=== PATIENT | female | born 1985 | race Caucasian/White ===

== ENCOUNTER 2017-02-02 00:01 | Emergency (ER) | payer MEDICAID ==
[~2017-02-02] VITALS: Ht 167.6 cm; Wt 55.0 kg
[2017-02-02 00:07] VITALS: Ht 167.6 cm; Wt 55.0 kg
[2017-02-02] MEDS ORDERED: METOCLOPRAMIDE 10 MG INJ IV STA (00:30)
[2017-02-02] MEDS ORDERED: DIPHENHYDRAMINE 50 MG INJ IV ONE (00:30)
[2017-02-02] MEDS ORDERED: SOD CHLORIDE 0.9% 1,000 ML IV STA (00:48)
[2017-02-02] MEDS ORDERED: KETOROLAC 15 MG INJ IV STA (01:53)
[2017-02-02] MEDS ORDERED: DIAZEPAM 5 MG TAB PO ONE (02:00)
[2017-02-02 02:17] LABS: ADD UMIC NO; UR ASCORBIC ACID NEGATIVE (NEGATIVE); UR BILIRUBIN (Dip) NEGATIVE (NEGATIVE); UR BLOOD (Dip) NEGATIVE (NEGATIVE); UR CLARITY CLEAR (CLEAR); UR COLOR STRAW (YELLOW); UR GLUCOSE (Dip) NEGATIVE (NEGATIVE); UR KETONES (Dip) NEGATIVE (NEGATIVE); UR LEUKOCYTE ESTERASE (Dip) NEGATIVE Leu/ul (NEGATIVE); UR NITRITE (Dip) NEGATIVE (NEGATIVE); UR SPECIFIC GRAVITY (Dip) 1.003 (1.003-1.030); UR TOTAL PROTEIN (Dip) NEGATIVE (NEGATIVE); UR UROBILINOGEN (Dip) NEGATIVE (NEGATIVE)
[2017-02-02] MEDS ORDERED: MECL12.574 PO (02:38)
[2017-02-02] MEDS ORDERED: METO10TA92 PO (02:38)
[2017-02-02] MEDS ORDERED: NAPR-260 PO (02:39)
--- NOTE | 2017-02-02 02:53 | RADRPT ---
PROCEDURE: CT BRAIN WITHOUT CONTRAST CLINICAL INDICATION: 31-year-old female with headaches and vertigo. TECHNIQUE: The study was performed utilizing a GE 800[employer]Its[employer]atonic VCT 64-slice CT scanner. Direct axia l sections were obtained from the foramen magnum to the vertex without the use of intravenous contra st material. Sagittal and coronal reformations were obtained. One or more the following dose reduct ion techniques were utilized: automated exposure control, adjustment of the mA and/or kV according t o patient's size and/or the use of iterative reconstruction technique. The images were viewed on a PACS workstation. CTD/vol = 44.5 mGy; Total Exam DLP = 720.2 mGy-cm. COMPARISON: None. FINDINGS: The ventricles have a normal size, shape and position. There is no evidence for mass effect or midl ine shift. There are no intracranial areas of abnormal attenuation. There is no evidence for acute intra or extra-axial blood. The bony calvarium is intact. The partially visualized paranasal sinuse s and mastoid air cells are without significant abnormal soft tissue. IMPRESSION: Unremarkable noncontrast CT scan of the brain. .Henrique Atkinson MD, Date Time Electronically viewed and signed by .Henrique Atkinson MD, on 02/02/2017 02:53 .[place]/
--- NOTE | 2017-02-02 02:55 | ERD ---
ER Documentation Chief Complaint Chief Complaint kiley boy friend, cc: headache, nausea, HPI 31 year old female presents with boyfriend to the emergency department for global moderate to severe strong headache associated with dizziness, nausea and couple episodes of nonbilious,nonbloody vomiting. Patient states she feels as if the room is spinning when she gets up. Admits to photophobia. She denies ear pain, tinnitus, neuro deficits, diarrhea, abdominal pain, shortness of breath, chest pain ROS All systems reviewed and are negative except as per history of present illness. Medications Home Meds Active Scripts Naproxen* (Naprosyn*) 500 Mg Tablet, 500 MG PO BID, #20 TAB Prov:SUDHAKAR ONEAL PA-C 02/02/17 Metoclopramide* (Reglan*) 10 Mg Tablet, 10 MG PO Q6 Y for NAUSEA AND/OR VOMITING , #20 TAB Prov:SUDHAKAR ONEALC 02/02/17 Meclizine Hcl* (Antivert*) 12.5 Mg Tab, 25 MG PO Q6H Y for DIZZINESS, #30 TAB Prov:SUDHAKAR ONEALC 02/02/17 Allergies Allergies: Coded Allergies: No Known Allergy (Unverified , 05/13/15) PMhx/Soc Hx Neurological Disorder: Yes (Occasional CALDERA's. Last one was 15 days ago. No Rx ) Hx Alcohol Use: No Hx Substance Use: No Hx Tobacco Use: No Smoking Status: Never smoker Physical Exam Vitals Vital Signs Date Time Temp Pulse Resp B/P Pulse Ox O2 Delivery O2 Flow Rate FiO2 02/02/17 00:07 98.1 78 16 112/64 100 Physical Exam GENERAL: well-developed/well-nourished, in no apparent distress, non-toxic appearing HENT: NC/AT, bilateral tympanic membrane is normal with good cone of light, nares patent, oropharynx clear without exudates EYES: Conjunctiva normal, PERRLA, EOMI, no nystagmus noted NECK: Supple, no lymphadenopathy PULM: CTA bilaterally, no rales, rhonchi, or wheezing heard CV: Normal S1S2, RRR, good capillary refill GI: Soft, non-distended, normal bowel sounds, non-tender BACK: No midline tenderness, no masses, No CVAT EXT: No clubbing, cyanosis, or edema NEURO: Alert and orientated to person, place, and time. CN II-IIX intact. Gait and coordination were normal. Hand veterinarian strength were equal and within normal limits SKIN: Intact, normal turgor PSYCH: Normal mood and mentation, patient denied SI Results 24 hrs Laboratory Tests Test 02/02/17 00:30 Urine Color STRAW Urine Clarity CLEAR Urine pH 8.0 Urine Specific [place] 1.003 Urine Ketones NEGATIVEmg/dL Urine Nitrite NEGATIVEmg/dL Urine Bilirubin NEGATIVEmg/dL Urine Urobilinogen NEGATIVEmg/dL Urine Leukocyte Esterase NEGATIVELeu/ul Urine Hemoglobin NEGATIVEmg/dL Urine Glucose NEGATIVEmg/dL Urine Total Protein NEGATIVEmg/dl Current Medications Medications (Trade) Dose Ordered Sig/Farheen Route PRN Reason Start Time Stop Time Status Last Admin Dose Admin Metoclopramide HCl (Reglan) 10 mg ONCE STAT IV 02/02/17 00:30 02/02/17 00:31 DC 02/02/17 01:00 Diphenhydramine HCl 50 mg 50 mg ONCE ONCE IV 02/02/17 00:30 02/02/17 00:31 DC 02/02/17 00:59 Sodium Chloride (NS) 1,000 ml @ 1,000 mls/hr Q1H STAT IV 02/02/17 00:48 02/02/17 01:47 DC 02/02/17 01:00 Diazepam (Valium) 10 mg ONCE ONCE PO 02/02/17 02:00 02/02/17 02:00 DC Ketorolac Tromethamine (Toradol) 15 mg ONCE STAT IV 02/02/17 01:53 02/02/17 01:54 DC 02/02/17 02:07 Procedures/MDM 31 year old female presents to the ED with headache and vertigo, likely peripheral vertigo, such as positional vertigo or vestibular migraines. Patient did not have neurological symptoms, tinnitus or hearing loss. Low suspicion for CVA, cerebral vertigo. CT brain did not show acute pathology. In the ED, IV access was established. Patient was given 1 liter of normal saline fluids, Benadryl, Reglan and Toradol. She was given valium 10mg PO, patient has improvement in symptoms. Patient is hemodynamically stable and neurovascularly intact to be discharged home to follow-up with primary care physician and referred to neurologist. Prescription naproxen, Antivert, and Reglan have been given. Discussed to return to the ER if condition worsens or not improves as expected. Patient expressed that they agreed and understood this plan. Departure Diagnosis: Primary Impression: Headache Additional Impression: Vertigo Condition: Stable Patient Instructions: Preventing Migraine Headaches: Medications and Lifestyle Changes, Vertigo, Unspecified Additional Instructions: Visite a pfeiffer mdico maana para un EXAMEN.Regrese a estas instalaciones si no se mejora melissa esperbamos o melissa le dijimos. Specialist:Usted tiene judd condicin mdica que requiere que jaja a un especialista dentro de los prximos 1-2 [place].POR FAVOR,CON PFEIFFER SEGUIMIENTO DE PRIMARIA PHSICIAN refferal. SI USTED NO TIENE UN MDICO GENERAL Y / O USTED NO PUEDE PAGAR ardianna a un mdico,los siguientes [place] RECURSOS sido suministrado a usted. ES PFEIFFER RESPONSABILIDAD PARA SER VISTOS POR EL ESPECIALISTA: Gore toda la medicina brijesh y melissa se le indic. Regrese a estas instalaciones si no se mejora melissa esperbamos o melissa le dijimos. SUDHAKAR ONEAL PA-C Feb 02, 2017 02:55 SUDHAKAR ONEAL PA-C Feb 02, 2017 02:55
== END 2017-02-02 03:06 | disposition home or self-care (01) ==
LOC: FTE 00:01
DX: R51 Headache (principal); R42 Dizziness and giddiness
CPT/HCPCS: 70450; 81003; 96374; 96375; J1200; J1885; J2765; J7030; Z7502

== ENCOUNTER 2017-05-01 09:45 | Emergency (ER) | END 2017-05-01 13:41 | disposition home or self-care (01) ==

== ENCOUNTER 2018-09-22 01:08 | Inpatient (IN) | payer MEDICAID, OTHER ==
[~2018-09-22] VITALS: Ht 157.5 cm; Wt 56.0 kg
[~2018-09-22 01:08] MED LIST: ACET500C5 PO; CIPR500T4 PO; MECL12.574 PO; METO10TA92 PO; NAPR-985 PO; ONDA4TAB14 PO
[2018-09-22 01:16] VITALS: Ht 157.5 cm; Wt 56.0 kg
[2018-09-22] MEDS ORDERED: ACETAMINOPHEN 325 MG TAB PO STA (01:21)
[2018-09-22] MEDS ORDERED: ONDANSETRON 4 MG INJ IV STA (01:21)
[2018-09-22] MEDS ORDERED: CEFEPIME 2GM/50 ML (PMX) 50 ML IVPB STA (01:21)
[2018-09-22] MEDS ORDERED: SODIUM CHLORIDE 0.9% 1L BAG IV* STA (01:21)
[2018-09-22] MEDS ORDERED: morphine 4 MG/ML VIAL IV STA (01:21)
[2018-09-22] MEDS ORDERED: VANCOMYCIN 1 GM (PMX) 250 ML IVPB ONE (01:30)
--- NOTE | 2018-09-22 03:38 | ERD ---
ER Documentation Chief Complaint Chief Complaint fever/abdominal pain/headache/vomiting x 2 dyas HPI This is a very pleasant 33 female with fever abdominal pain and vomiting for the past 2 days. Vomiting is nonbilious nonbloody. She also complains of body aches and a little bit of runny nose and slight cough. No sick contacts. No recent travel. No other current complaints. Patient says she got progressively worse over the past few days. Denies any photophobia. Denies any neck stiffness. ROS All systems reviewed and are negative except as per history of present illness. Medications Home Meds Active Scripts Acetaminophen* (Tylophen*) 500 Mg Capsule, 1 CAP PO Q6H PRN for PAIN AND OR ELEVATED TEMP, #20 CAP Prov:RICARDO NEVES. SEAMLESS T[employer]BE MILL OPERATOR 05/01/17 Discontinued Scripts Ciprofloxacin Hcl* (Ciprofloxacin Hcl*) 500 Mg Tablet, 500 MG PO BID for 10 Days, #20 TAB Prov:RICARDO NEVES. SEAMLESS TUBE MILL OPERATOR 05/01/17 Ondansetron (Ondansetron Odt) 4 Mg Tab.rapdis, 4 MG PO Q6H PRN for NAUSEA AND/OR VOMITING, #10 TAB Prov:RICARDO NEVES. SEAMLESS TUBE MILL OPERATOR 05/01/17 Naproxen* (Naprosyn*) 500 Mg Tablet, 500 MG PO BID, #20 TAB Prov:SUDHAKAR ONEAL PA-C 02/02/17 Metoclopramide* (Reglan*) 10 Mg Tablet, 10 MG PO Q6 PRN for NAUSEA AND/OR VOMITING, #20 TAB Prov:SUDHAKAR ONEAL PA-C 02/02/17 Meclizine Hcl* (Antivert*) 12.5 Mg Tab, 25 MG PO Q6H PRN for DIZZINESS, #30 TAB Prov:SUDHAKAR ONEAL PA-C 02/02/17 Allergies Allergies: Coded Allergies: No Known Allergy (Unverified , 09/22/18) PMhx/Soc History of Surgery: Yes (SOME INTESTINAL SX BUT UNSURE THE NAME) Anesthesia Reaction: No Hx Neurological Disorder: Yes (Occasional CALDERA's. Last one was 15 days ago. No Rx) Hx Respiratory Disorders: No Hx Cardiac Disorders: No Hx Psychiatric Problems: No Hx Miscellaneous Medical Probl: No Hx Alcohol Use: No Hx Substance Use: No Hx Tobacco Use: No Smoking Status: Never smoker Physical Exam Vitals Vital Signs Date Temp Pulse Resp B/P (MAP) Pulse Ox O2 O2 Flow FiO2 Time Delivery Rate 09/22/18 100.1 125 20 91/53 (66) 100 Room Air 03:01 09/22/18 100.5 02:36 09/22/18 102.7 132 18 111/65 99 01:16 (80) Physical Exam Const: No acute distress Head: Atraumatic Eyes: Normal Conjunctiva ENT: Normal External Ears, Nose and Mouth. Neck: Full range of motion. No meningismus. Resp: Clear to auscultation bilaterally Cardio: Regular rate and rhythm, no murmurs Abd: Soft, non tender, non distended. Normal bowel sounds Skin: No petechiae or rashes Back: No midline or flank tenderness Ext: No cyanosis, or edema Neur: Awake and alert Psych: Normal Mood and Affect Result Diagram: 09/22/18 0131 09/22/18 0131 Results 24 hrs Laboratory Tests Test 09/22/18 01:31 09/22/18 01:34 09/22/18 01:35 09/22/18 01:41 White Blood Count 9.3 10^3/ul Red Blood Count 4.32 10^6/ul Hemoglobin 12.9 g/dl Hematocrit 36.6 % Mean Corpuscular 84.7 fl Volume Mean Corpuscular 29.9 pg Hemoglobin Mean Corpuscular 35.2 g/dl Hemoglobin Concen t Red Cell 12.3 % Distribution Width Platelet Count 217 10^3/UL Mean Platelet 10.9 fl Volume Immature 0.400 % Granulocytes % Neutrophils % 80.9 % Lymphocytes % 11.9 % Monocytes % 6.5 % Eosinophils % 0.1 % Basophils % 0.2 % Nucleated Red 0.0 /100WBC Blood Cells % Immature 0.040 10^3/ul Granulocytes # Neutrophils # 7.5 10^3/ul Lymphocytes # 1.1 10^3/ul Monocytes # 0.6 10^3/ul Eosinophils # 0.0 10^3/ul Basophils # 0.0 10^3/ul Nucleated Red 0.0 10^3/ul Blood Cells # Prothrombin Time 13.5 Sec Prothrombin Time 1.1 Ratio INR International 1.02 Normalized Ratio Activated 26.6 Sec Partial Thrombopl ast Time Sodium Level 143 mmol/L Potassium Level 3.5 mmol/L Chloride Level 109 mmol/L Carbon Dioxide 20 mmol/L Level Anion Gap 14 Blood Urea 9 mg/dl Nitrogen Creatinine 0.53 mg/dl Est Glomerular > 60 mL/min Filtrat Rate mL/min Glucose Level 128 mg/dl Calcium Level 9.3 mg/dl Total Bilirubin 0.5 mg/dl Direct Bilirubin 0.00 mg/dl Indirect 0.5 mg/dl Bilirubin Aspartate Amino 26 IU/L Transf (AST/SGOT) Alanine 25 IU/L Aminotransferase (ALT/SGPT) Alkaline 98 IU/L Phosphatase Troponin I < 0.012 ng/ml Total Protein 8.6 g/dl Albumin 4.6 g/dl Globulin 4.00 g/dl Albumin/Globulin 1.15 Ratio Lipase 54 U/L POC Venous 1.8 mmol/L Lactate Urine Color YELLOW Urine Clarity SLIGHTLY CLOUDY Urine pH 6.0 Urine Specific 1.020 [place] Urine Ketones NEGATIVE mg/dL Urine Nitrite NEGATIVE mg/dL Urine Bilirubin NEGATIVE mg/dL Urine 1+ mg/dL Urobilinogen Urine Leukocyte NEGATIVE X[place]/ul Esterase Urine Microscopic 2 /HPF RBC Urine Microscopic 3 /HPF WBC Urine Mucus FEW /HPF Urine Hemoglobin 1+ mg/dL Urine Glucose NEGATIVE mg/dL Urine Total NEGATIVE mg/dl Protein POC Beta HCG, NEGATIVE Qualitative Current Medications Medications Dose Sig/Farheen Start Time Status Last (Trade) Ordered Route PRN Stop Time Admin Dose Reason Admin Sodium 1,680 ml BOLUS OVER 2 09/22/18 DC 09/22/18 Chloride HOURS STAT 01:21 02:04 (NS) IV* 09/22/18 01:22 650 mg ONCE STAT 09/22/18 DC 09/22/18 Acetaminophen PO 01:21 02:04 (Tylenol 09/22/18 01:22 Tab) Cefepime HCl 50 ml @ ONCE STAT 09/22/18 DC 09/22/18 100 mls/hr IVPB 01:21 02:12 09/22/18 01:50 Vancomycin 250 ml @ ONCE ONCE 09/22/18 DC 09/22/18 HCl 125 mls/hr IVPB 01:30 02:40 09/22/18 03:29 Morphine 4 mg ONCE STAT 09/22/18 DC 09/22/18 Sulfate IV 01:21 02:04 (morphine) 09/22/18 01:23 Ondansetron 4 mg ONCE STAT 09/22/18 DC 09/22/18 HCl (Zofran IV 01:21 02:04 Inj) 09/22/18 01:23 Ondansetron 4 mg ER BRIDGE 09/22/18 HCl (Zofran PRN IV 04:00 Inj) NAUSEA/VOMITI 09/23/18 03:59 NG 650 mg ER BRIDGE 09/22/18 Acetaminophen PRN PO 04:00 (Tylenol .MILD PAIN 09/23/18 03:59 Tab) 1-3 OR TEMP Procedures/MDM EKG: Rate/Rhythm: [Normal Sinus Rhythm] QRS, ST, T-waves: [No changes consistent w/ acute ischemia] Impression: [No evidence of ischemia or arrhythmia] Chest X-ray 1V Interpreted by me: Soft Tissue: No acute abnormalities Bones: No acute abnormalities Mediastinum/Cardiac Silhouette/Lungs: [No acute abnormalities] Patient's infectious symptoms have not stabilized and the patient is at risk of rapid decompensation. The patient will be admitted for careful hydration, antibiotic therapy, and infectious source control. Severe Sepsis Assessment: Infectious Source: Unknown No evidence of endorgan damage 30 ml/kg NS bolus Completed Initial Lactate: 1.8 Repeat Lactate pending Critical Care: Time: 45 minutes, independent of any separately billable procedural time Treatments/Evaluations: Emergent fluid management, while maintaining close respiratory support. Immediate broad spectrum antibiotic therapy. Simultaneous assessment for possible sources in order to direct therapy. Consideration for invasive and chemical support to prevent respiratory or cardiac collapse. Septic Shock Assessment (1 hour post 30 ml/kg fluid bolus): Hypotension (SBP < 90 or 40 mmHg drop, MAP < 65): [No] Lactic acid > 4.0 [No] Perfusion Reassessment for Septic Shock: Temp 99.1 pulse 117, RR 18, BP 117/34 Heart Exam: [Tachycardic] Lung Exam: [No Crackles] Capillary Refill: [Delayed] Peripheral Pulses: [Radially present] Skin: [Mottled, pale] Hypotensive Treatment (not required for isolated lactic acid elevation): Comfort Care: No Central LIne: [[place]] Vasopressor started: [norepinephrine] Accepting Care Team: Current data and ongoing care discussed. Time: 330 Primary Provider: Dr. Cary Consulting: Deferred to inpatient team Outstanding Data: none Departure Diagnosis: Primary Impression: Fever Fever type: unspecified Qualified Codes: R50.9 - Fever, unspecified Additional Impression: Sepsis Sepsis type: sepsis due to unspecified organism Qualified Codes: A41.9 - Sepsis, unspecified organism Condition: Serious BENTLEY WE[place] Sep 22, 2018 03:38
[2018-09-22] MEDS ORDERED: ACETAMINOPHEN 325 MG TAB PO PRN ×2 (04:00→04:30)
[2018-09-22] MEDS ORDERED: ONDANSETRON 4 MG INJ IV PRN (04:00)
--- NOTE | 2018-09-22 04:28 | HP ---
Date/Time of Note Date/Time of Note DATE: 09/22/18 TIME: 04:20 Assessment/Plan VTE Prophylaxis SCD applied (from Nsg): Yes Pharmacological prophylaxis: NA/contraindicated Pharm contraindication: low risk/ambulating Lines/Catheters IV Catheter Type (from Nrsg): Saline Lock Assessment/Plan Hospital Course This is a 33-year-old female being admitted to the telemetry floor for: #1 SIRS: Source unknown possibly underlying GI etiology. viral vs. bacterial. Possibly gastroenteritis. CT scan of the abdomen pelvis without contrast was negative. Given patient's clinical picture as well as examination findings I will proceed with a CT of the abdomen pelvis with IV and p.o. contrast to furthe r evaluate. Broad-spectrum antibiotics of vancomycin and Zosyn. Will trend lactic acid levels initial one was within normal values. Will check influenza panel. No meningeal signs. Negative test. #2 sinus tachycardia: Secondary likely to underlying sepsis and fever. Will give an additional liter bolus of normal saline. Will monitor closely on telemetry. cardio consult if persistent tachycardia. #3 metabolic acidosis: Likely secondary to underlying sepsis. Broad-spectrum antibodies at the current time. Repeat CT of the abdomen pelvis with IV and p.o. contrast. #4 Facial redness: possibly morphine reaction as reports occurred in the past, will dc morphine. dilaudid for pain now. Monitor for resolution or recurrence in the setting of abx administration #5 DVT GI prophylaxis: SCDs, no GI prophylaxis indicated Further treatment strategy will be implemented as per the clinical course. Result Diagram: 09/22/1813009/22/18 013 Results 24hrs Laboratory Tests Test 09/22/18 01:31 09/22/18 01:34 09/22/18 01:35 09/22/18 01:41 White Blood Count 9.3 # Red Blood Count 4.32 Hemoglobin 12.9 Hematocrit 36.6 L Mean Corpuscular 84.7 Volume Mean Corpuscular 29.9 Hemoglobin Mean Corpuscular 35.2 Hemoglobin Concen t Red Cell 12.3 Distribution Width Platelet Count 217 Mean Platelet 10.9 H Volume Immature 0.400 Granulocytes % Neutrophils % 80.9 H Lymphocytes % 11.9 L Monocytes % 6.5 Eosinophils % 0.1 Basophils % 0.2 Nucleated Red 0.0 Blood Cells % Immature 0.040 H Granulocytes # Neutrophils # 7.5 Lymphocytes # 1.1 Monocytes # 0.6 Eosinophils # 0.0 Basophils # 0.0 Nucleated Red 0.0 Blood Cells # Prothrombin Time 13.5 Prothrombin Time 1.1 Ratio INR International 1.02 Normalized Ratio Activated 26.6 Partial Thrombopl ast Time Sodium Level 143 Potassium Level 3.5 Chloride Level 109 Carbon Dioxide 20 L Level Anion Gap 14 H Blood Urea 9 Nitrogen Creatinine 0.53 Est Glomerular > 60 Filtrat Rate mL/min Glucose Level 128 Calcium Level 9.3 Total Bilirubin 0.5 Direct Bilirubin 0.00 Indirect 0.5 Bilirubin Aspartate Amino 26 Transf (AST/SGOT) Alanine 25 Aminotransferase (ALT/SGPT) Alkaline 98 Phosphatase Troponin I < 0.012 Total Protein 8.6 H Albumin 4.6 Globulin 4.00 H Albumin/Globulin 1.15 Ratio Lipase 54 POC Venous 1.8 Lactate Urine Color YELLOW Urine Clarity SLIGHTLY CLOUDY A Urine pH 6.0 Urine Specific 1.020 [place] Urine Ketones NEGATIVE Urine Nitrite NEGATIVE Urine Bilirubin NEGATIVE Urine 1+ H Urobilinogen Urine Leukocyte NEGATIVE Esterase Urine Microscopic 2 RBC Urine Microscopic 3 WBC Urine Mucus FEW A Urine Hemoglobin 1+ H Urine Glucose NEGATIVE Urine Total NEGATIVE Protein POC Beta HCG, NEGATIVE Qualitative Test 09/22/18 03:29 Lactic Acid Level 0.9 HPI/ROS Admit Date/Time Admit Date/Time Hx of Present Illness Chief complaint: Abdominal pain, fever This is a 33-year-old female who presented to the emergency department with her with complaints of abdominal pain and headache x1 day. Patient reports that she started experiencing around 6 PM yesterday abdominal pain followed by nausea and vomiting. She denies any blood in the vomit. She denies any diarrhea. She states that she did have a headache as well. She did feel febrile at home but did not check her temperature. She did have a child at home who is sick. She denies any photophobia or neck pain. Denies any cough or wheezing. She denies any bloody stools. Of note patient was given morphine in the emergency department and she was noted to have a redness of her face as well as her upper chest area her did report that in the past she had morphine and she had a similar reaction. She denies at the current time any trouble breathing or shortness of breath. Allergies: NKDA Medications: See JUN ROS Const: As per HPI Eyes : No pain discharge or redness or change in visual acuity ENT: No pain, sore throat, congestion, congestion, dysphagia or discharge Respiratory: No shortness of breath, cough, sputum, wheezing, or pleuritic pain Cardiovascular: No chest pain, palpitation, PND, or edema GI : As per HPI Genitourinary: No dysuria, hematuria, flank pain , discharge or CVA tenderness Musculoskeletal: No joint pain, back pain, neck pain, restricted range of motion in neck or joints Skin: As per HPI Neuro: No headache, dizziness, syncope, seizure, focal weakness Endocrine: No polyuria, polydipsia, temperature intolerance Psych: No hallucination, depression, anxiety or suicidal ideation PMH/Family/Social Past Medical History intestinal volvulus? Medications Current Medications Ondansetron HCl (Zofran Inj) 4 mg ER BRIDGE PRN IV NAUSEA/VOMITING; Start 09/22/18 at 04:00; Stop 09/23/18 at 03:59 Acetaminophen (Tylenol Tab) 650 mg ER BRIDGE PRN PO .MILD PAIN 1-3 OR TEMP; Start 09/22/18 at 04:00; Stop 09/23/18 at 03:59 Iohexol ((Gastrografin therapeutic equivalent)) 900 ml GIVE PRIOR TO CT ONCE PO ; Start 09/22/18 at 04:30; Stop 09/22/18 at 04:31 Sodium Chloride 1,000 ml @ 100 mls/hr Q10H IV ; Start 09/22/18 at 04:15; Status UNV IV Flush (NS 3 ml) 3 ml PER PROTOCOL IV ; Start 09/22/18 at 04:30; Status UNV Acetaminophen (Tylenol Tab) 650 mg Q6H PRN PO .PAIN 1-3 OR TEMP; Start 09/22/18 at 04:30; Status UNV Hydromorphone HCl (Dilaudid) 0.5 mg Q4H PRN IV .PAIN 7-10; Start 09/22/18 at 04:30; Status UNV Docusate Sodium (Colace) 100 mg Q12H PRN PO .CONSTIPATION; Start 09/22/18 at 0 4:30; Status UNV Bisacodyl (Dulcolax) 5 mg DAILY PRN PO .CONSTIPATION; Start 09/22/18 at 04:30; Status UNV Coded Allergies: No Known Allergy (Unverified , 09/22/18) Past Surgical History Exploratory laparotomy for intestinal repair?, Ovarian cyst removal Family History Significant Family History: no pertinent family hx Social History Alcohol Use: none Smoking Status: Never smoker Drug Use: none Exam/Review of Systems Vital Signs Vitals Vital Signs Date Temp Pulse Resp B/P (MAP) Pulse Ox O2 O2 Flow FiO2 Time Delivery Rate 09/22/18 124 22 101/52 95 Room Air 03:43 (68) 09/22/18 100.1 03:01 Exam Exam General: Patient is currently lying in bed she does appear to be lethargic, and ill-appearing HEENT: Atraumatic, normocephalic. The pupils are equal, round and reactive. Extraocular motor are intact Neck: Supple with full range of motion. No rigidity or meningismus Chest: Nontender Lungs: Clear to auscultation bilaterally no crackles rales or wheezing Heart: Normal S1-S2, Regular rhythm and rate. No murmur, S3, or S4 Abdomen: Soft, tenderness palpation over the lower left abdomen and suprapubic area. Mild guarding to palpation. Normal bowel sounds. No right lower quadrant tenderness to palpation. Skin: Macular rash noted of the face and upper chest Extremities: Normal to inspection, no edema no cyanosis Neurologic: Normal mental status, speech normal, cranial nerves II through XII are intact, motor and sensory are intact,, negative Kernig's and Brudzinski's on exam Additional Comments PROCEDURE: CT Abdomen and Pelvis without contrast. CLINICAL INDICATION: Abdominal pain TECHNIQUE: CT scan of the abdomen and pelvis without contrast was performed on a multi-detector high-resolution CT scanner. Coronal and sagittal reformatted i mages obtained from the axial source images. Images were reviewed on a high- resolution PACS workstation. Exam CTDI 5.62 mGy Exam DLP 329.34 mGy-cm DICOM images are available. One or more of the following dose reduction techniques were utilized: 1.) Automated exposure control 2.) Adjustment of the mA +/- kV according to patient's size 3.) Use of iterative reconstruction technique. COMPARISON: None FINDINGS: Exam is mildly compromised by patient motion. CT abdomen: LOWER THORAX: Lung bases are clear. LIVER AND GALLBLADDER: No abnormal findings. SPLEEN: Normal. PANCREAS: Normal. ADRENAL GLANDS: Normal. KIDNEYS: Kidneys are symmetric in size and morphology. No hydronephrosis or renal calculus. Bilateral ureters are unremarkable. VASCULATURE: Abdominal aorta is normal in caliber. LYMPH NODES: No significant retroperitoneal or mesenteric lymphadenopathy. BOWEL AND MESENTERY: The stomach and bowel are suboptimally evaluated due to patient motion. No significant dilatation of the bowel or evidence for obstruction. The appendix is not clearly seen. There are no inflammatory changes in the mesentery. The large bowel is unremarkable. CT pelvis: Urinary bladder and pelvic organs appear normal. No significant pelvic free fluid or evidence of an inflammatory process. Bones: Regional bones and superficial soft tissues are grossly unremarkable for age. IMPRESSION: 1. No acute process in the imaged abdomen or pelvis. 2. No renal calcifications or evidence for obstructive uropathy. 3. Appendix not clearly seen. No pericecal inflammatory changes. RPTAT: TWYLABB Physician Leatha Date Time Electronically viewed and signed by Physician Leatha on 09/22/2018 02:38 xB/ CC: BENTLEY WELLINGTON [id number] PROCEDURE: Single view chest. CLINICAL INDICATION: Abdominal pain TECHNIQUE: Single view of the chest was obtained COMPARISON: None FINDINGS: There is no airspace consolidation or focal infiltrate. No pleural effusion or pneumothorax. Cardiac silhouette and mediastinal contours are unremarkable. Pulmonary vasculature appears normal. Regional bones are grossly unremarkable. IMPRESSION: No evidence of active cardiopulmonary disease. RPTAT: CHIDI Physician Leatha Date Time Electronically viewed and signed by Physician Leatha on 09/22/2018 02:38 xB/ CC: BENTLEY WELLINGTON [id number] ARIELA PEARL Sep 22, 2018 04:28
[2018-09-22] MEDS ORDERED: NACL 0.9% 3 ML SYG IV SCH (04:30)
[2018-09-22] MEDS ORDERED: IOHEXOL 14.3 MG(I)/ML (ADULT) BTL PO ONE (04:30)
[2018-09-22] MEDS ORDERED: BISACODYL (EC) 5 MG TAB PO PRN ×2 (04:30→10:30)
[2018-09-22] MEDS ORDERED: VANCOMYCIN IV PER PHARMACY XX SCH (04:30)
[2018-09-22] MEDS ORDERED: HYDROmorphONE 0.5 MG/0.5 ML SYG IV PRN (04:30)
[2018-09-22] MEDS ORDERED: DIPHENHYDRAMINE 50 MG INJ IV ONE (04:30)
[2018-09-22] MEDS ORDERED: DOCUSATE SODIUM 100 MG CAP PO PRN (04:30)
[2018-09-22] MEDS ORDERED: KETOROLAC 15 MG INJ IV STA (04:31)
[2018-09-22] MEDS ORDERED: SOD CHLORIDE 0.9% 100 ML ONE (04:32)
[2018-09-22] MEDS ORDERED: IOHEXOL 300MG/ML 150 ML BTL ONE (04:32)
[2018-09-22] MEDS: SOD CHLORIDE 0.9% 1,000 ML IV SCH ×2 (05:14→16:07)
[2018-09-22] MEDS: PIPER-TAZO 3.375 GM IV (PMX) 100 ML IVPB SCH ×4 (07:05→23:47)
--- NOTE | 2018-09-22 08:50 | QN ---
Documentation Comment Patient does not require telemetry monitoring at this time. The patient has no arrhythmias over the past 8 hours while in the emergency department. Patient will be downgraded to a medical surgical bed. Observation Note: Time: 4 hours Family Hx: Negative for diabetes Evaluation: Multiple exams showed improving symptoms and no evidence of clinical decompensation. EMERITA BRAR MD Sep 22, 2018 08:50
[2018-09-22] MEDS: VANCOMYCIN 500 MG (PMX) 100 ML IVPB SCH ×2 (09:08→17:29)
[2018-09-22] MEDS: POLYETHYLENE GLYCOL 17 GM PACKET PO SCH (10:21)
[2018-09-22] MEDS: SENNA/DOCUSATE NA (8.6MG/50MG) TAB PO SCH ×2 (10:21→20:45)
[2018-09-22] MEDS ORDERED: BISACODYL 10 MG SUPP PR PRN (10:30)
--- NOTE | 2018-09-22 10:55 | PN ---
Date/Time of Note Date/Time of Note DATE: 09/22/18 TIME: 10:49 Assessment/Plan VTE Prophylaxis SCD applied (from Nsg): Yes Pharmacological prophylaxis: NA/contraindicated Pharm contraindication: low risk/ambulating Lines/Catheters IV Catheter Type (from Nrsg): Saline Lock Assessment/Plan Assessment/Plan 1. SIRS, unknown source - patient presented with tachy/fevers but has remained stable this am - WBC nl and lactic acid normal as well - on broad spectrum antibiotics - appears more viral vs reactive - rodriguez cultures ordered and influenza swab pending 2. Constipation - seen on CT scan and patient admits to only small BM yesterday - will order stool softeners and monitor for BM 3. Diet - will start clear diet and will advance as tolerated 4. Disposition - Will continue monitoring vitals and once sx improve and remains afebrile for 24 hours, will d/c home. Stool softeners for constipation Result Diagram: 09/22/18 0535 09/22/18 0535 Results 24hrs Laboratory Tests Test 09/22/18 01:31 09/22/18 01:34 09/22/18 01:35 09/22/18 01:41 White Blood Count 9.3 # Red Blood Count 4.32 Hemoglobin 12.9 Hematocrit 36.6 L Mean Corpuscular 84.7 Volume Mean Corpuscular 29.9 Hemoglobin Mean Corpuscular 35.2 Hemoglobin Concen t Red Cell 12.3 Distribution Width Platelet Count 217 Mean Platelet 10.9 H Volume Immature 0.400 Granulocytes % Neutrophils % 80.9 H Lymphocytes % 11.9 L Monocytes % 6.5 Eosinophils % 0.1 Basophils % 0.2 Nucleated Red 0.0 Blood Cells % Immature 0.040 H Granulocytes # Neutrophils # 7.5 Lymphocytes # 1.1 Monocytes # 0.6 Eosinophils # 0.0 Basophils # 0.0 Nucleated Red 0.0 Blood Cells # Prothrombin Time 13.5 Prothrombin Time 1.1 Ratio INR International 1.02 Normalized Ratio Activated 26.6 Partial Thrombopl ast Time Sodium Level 143 Potassium Level 3.5 Chloride Level 109 Carbon Dioxide 20 L Level Anion Gap 14 H Blood Urea 9 Nitrogen Creatinine 0.53 Est Glomerular > 60 Filtrat Rate mL/min Glucose Level 128 Calcium Level 9.3 Total Bilirubin 0.5 Direct Bilirubin 0.00 Indirect 0.5 Bilirubin Aspartate Amino 26 Transf (AST/SGOT) Alanine 25 Aminotransferase (ALT/SGPT) Alkaline 98 Phosphatase Troponin I < 0.012 Total Protein 8.6 H Albumin 4.6 Globulin 4.00 H Albumin/Globulin 1.15 Ratio Lipase 54 POC Venous 1.8 Lactate Urine Color YELLOW Urine Clarity SLIGHTLY CLOUDY A Urine pH 6.0 Urine Specific 1.020 [place] Urine Ketones NEGATIVE Urine Nitrite NEGATIVE Urine Bilirubin NEGATIVE Urine 1+ H Urobilinogen Urine Leukocyte NEGATIVE Esterase Urine Microscopic 2 RBC Urine Microscopic 3 WBC Urine Mucus FEW A Urine Hemoglobin 1+ H Urine Glucose NEGATIVE Urine Total NEGATIVE Protein Urine Opiates Negative Screen Urine Negative Barbiturates Urine Negative Amphetamines Screen Urine Negative Benzodiazepines Screen Urine Cocaine Negative Screen Urine Negative Cannabinoids POC Beta HCG, NEGATIVE Qualitative Test 09/22/18 03:29 09/22/18 05:35 09/22/18 05:36 Lactic Acid Level 0.9 0.8 White Blood Count 5.9 # Red Blood Count 3.61 L Hemoglobin 10.7 L Hematocrit 31.7 L Mean Corpuscular 87.8 Volume Mean Corpuscular 29.6 Hemoglobin Mean Corpuscular 33.8 Hemoglobin Concen t Red Cell 12.5 Distribution Width Platelet Count 176 Mean Platelet 10.6 H Volume Immature 0.500 H Granulocytes % Neutrophils % 77.5 H Lymphocytes % 14.6 L Monocytes % 7.1 Eosinophils % 0.0 Basophils % 0.3 Nucleated Red 0.0 Blood Cells % Immature 0.030 Granulocytes # Neutrophils # 4.6 Lymphocytes # 0.9 Monocytes # 0.4 Eosinophils # 0.0 Basophils # 0.0 Nucleated Red 0.0 Blood Cells # Erythrocyte 15 Sedimentation Rate Sodium Level 141 Potassium Level 3.7 Chloride Level 114 H Carbon Dioxide 21 Level Anion Gap 6 # Blood Urea 6 L Nitrogen Creatinine 0.53 Est Glomerular > 60 Filtrat Rate mL/min Glucose Level 108 Hemoglobin A1c 5.2 Calcium Level 7.2 L Total Bilirubin 0.4 Direct Bilirubin 0.00 Indirect 0.4 Bilirubin Aspartate Amino 19 Transf (AST/SGOT) Alanine 31 Aminotransferase (ALT/SGPT) Alkaline 76 Phosphatase Total Protein 6.3 # Albumin 3.4 # Globulin 2.90 Albumin/Globulin 1.17 Ratio Triglycerides 27 Level Cholesterol Level 93 L LDL Cholesterol, 61 Calculated HDL Cholesterol 27 L Cholesterol/HDL 3.4 Ratio Thyroid 0.447 L Stimulating Hormone (TSH) Subjective 24 Hr Interval Summary Free Text/Dictation Patient states shes feeling slightly better but still with abdominal discomfort. admits to small yesterday. No noted fevers this am. Exam/Review of Systems Exam Vitals Vital Signs Date Temp Pulse Resp B/P (MAP) Pulse Ox O2 O2 Flow FiO2 Time Delivery Rate 09/22/18 87 21 92/61 (71) 98 Room Air 08:55 09/22/18 100.1 03:01 Exam General: mild distress secondary to pain. Neck: Supple Lungs: Clear to auscultation bilaterally no crackles rales or wheezing Heart: Normal S1-S2, Regular rhythm and rate. No murmur, S3, or S4 Abdomen: Soft, mildly tender to palpation LLQ. Normal bowel sounds. nondistended Extremities: Normal to inspection, no edema no cyanosis Results Results 24hrs Laboratory Tests Test 09/22/18 01:31 09/22/18 01:34 09/22/18 01:35 09/22/18 01:41 White Blood Count 9.3 # Red Blood Count 4.32 Hemoglobin 12.9 Hematocrit 36.6 L Mean Corpuscular 84.7 Volume Mean Corpuscular 29.9 Hemoglobin Mean Corpuscular 35.2 Hemoglobin Concen t Red Cell 12.3 Distribution Width Platelet Count 217 Mean Platelet 10.9 H Volume Immature 0.400 Granulocytes % Neutrophils % 80.9 H Lymphocytes % 11.9 L Monocytes % 6.5 Eosinophils % 0.1 Basophils % 0.2 Nucleated Red 0.0 Blood Cells % Immature 0.040 H Granulocytes # Neutrophils # 7.5 Lymphocytes # 1.1 Monocytes # 0.6 Eosinophils # 0.0 Basophils # 0.0 Nucleated Red 0.0 Blood Cells # Prothrombin Time 13.5 Prothrombin Time 1.1 Ratio INR International 1.02 Normalized Ratio Activated 26.6 Partial Thrombopl ast Time Sodium Level 143 Potassium Level 3.5 Chloride Level 109 Carbon Dioxide 20 L Level Anion Gap 14 H Blood Urea 9 Nitrogen Creatinine 0.53 Est Glomerular > 60 Filtrat Rate mL/min Glucose Level 128 Calcium Level 9.3 Total Bilirubin 0.5 Direct Bilirubin 0.00 Indirect 0.5 Bilirubin Aspartate Amino 26 Transf (AST/SGOT) Alanine 25 Aminotransferase (ALT/SGPT) Alkaline 98 Phosphatase Troponin I < 0.012 Total Protein 8.6 H Albumin 4.6 Globulin 4.00 H Albumin/Globulin 1.15 Ratio Lipase 54 POC Venous 1.8 Lactate Urine Color YELLOW Urine Clarity SLIGHTLY CLOUDY A Urine pH 6.0 Urine Specific 1.020 [place] Urine Ketones NEGATIVE Urine Nitrite NEGATIVE Urine Bilirubin NEGATIVE Urine 1+ H Urobilinogen Urine Leukocyte NEGATIVE Esterase Urine Microscopic 2 RBC Urine Microscopic 3 WBC Urine Mucus FEW A Urine Hemoglobin 1+ H Urine Glucose NEGATIVE Urine Total NEGATIVE Protein Urine Opiates Negative Screen Urine Negative Barbiturates Urine Negative Amphetamines Screen Urine Negative Benzodiazepines Screen Urine Cocaine Negative Screen Urine Negative Cannabinoids POC Beta HCG, NEGATIVE Qualitative Test 09/22/18 03:29 09/22/18 05:35 09/22/18 05:36 Lactic Acid Level 0.9 0.8 White Blood Count 5.9 # Red Blood Count 3.61 L Hemoglobin 10.7 L Hematocrit 31.7 L Mean Corpuscular 87.8 Volume Mean Corpuscular 29.6 Hemoglobin Mean Corpuscular 33.8 Hemoglobin Concen t Red Cell 12.5 Distribution Width Platelet Count 176 Mean Platelet 10.6 H Volume Immature 0.500 H Granulocytes % Neutrophils % 77.5 H Lymphocytes % 14.6 L Monocytes % 7.1 Eosinophils % 0.0 Basophils % 0.3 Nucleated Red 0.0 Blood Cells % Immature 0.030 Granulocytes # Neutrophils # 4.6 Lymphocytes # 0.9 Monocytes # 0.4 Eosinophils # 0.0 Basophils # 0.0 Nucleated Red 0.0 Blood Cells # Erythrocyte 15 Sedimentation Rate Sodium Level 141 Potassium Level 3.7 Chloride Level 114 H Carbon Dioxide 21 Level Anion Gap 6 # Blood Urea 6 L Nitrogen Creatinine 0.53 Est Glomerular > 60 Filtrat Rate mL/min Glucose Level 108 Hemoglobin A1c 5.2 Calcium Level 7.2 L Total Bilirubin 0.4 Direct Bilirubin 0.00 Indirect 0.4 Bilirubin Aspartate Amino 19 Transf (AST/SGOT) Alanine 31 Aminotransferase (ALT/SGPT) Alkaline 76 Phosphatase Total Protein 6.3 # Albumin 3.4 # Globulin 2.90 Albumin/Globulin 1.17 Ratio Triglycerides 27 Level Cholesterol Level 93 L LDL Cholesterol, 61 Calculated HDL Cholesterol 27 L Cholesterol/HDL 3.4 Ratio Thyroid 0.447 L Stimulating Hormone (TSH) Medications Medication Current Medications Ondansetron HCl (Zofran Inj) 4 mg ER BRIDGE PRN IV NAUSEA/VOMITING; Start 09/22/18 at 04:00; Stop 09/23/18 at 03:59 Sodium Chloride 1,000 ml @ 100 mls/hr Q10H IV Last administered on 09/22/18at 05:14; Admin Dose 100 MLS/HR; Start 09/22/18 at 04:15 IV Flush (NS 3 ml) 3 ml PER PROTOCOL IV ; Start 09/22/18 at 04:30 Acetaminophen (Tylenol Tab) 650 mg Q6H PRN PO .PAIN 1-3 OR TEMP; Start 09/22/18 at 04:30 Hydromorphone HCl (Dilaudid) 0.5 mg Q4H PRN IV .PAIN 7-10; Start 09/22/18 at 04:30 Docusate Sodium (Colace) 100 mg Q12H PRN PO .CONSTIPATION; Start 09/22/18 at 04:30 Bisacodyl (Dulcolax) 5 mg DAILY PRN PO .CONSTIPATION; Start 09/22/18 at 04:30 Vancomycin HCl (Vanco Iv Per Pharmacy) VANCOMYCIN PER PHARMACY PER PROTOCOL XX ; Start 09/22/18 at 04:30 Piperacillin Sod/ Tazobactam Sod 100 ml @ 200 mls/hr Q6 IVPB Last administered on 09/22/18at 07:05; Admin Dose 200 MLS/HR; Start 09/22/18 at 05:00 Vancomycin HCl 100 ml @ 100 mls/hr Q8H IVPB Last administered on 09/22/18at 09:08; Admin Dose 100 MLS/HR; Start 09/22/18 at 09:00 Miscellaneous Information (*Rx Drug Level Order Reminder*) VANCO TR AT 0000 0000 ONCE XX ; Start 09/23/18 at 00:00; Stop 09/23/18 at 00:01 Polyethylene Glycol (Miralax) 17 gm DAILY PO Last administered on 09/22/18at 10:21; Admin Dose 17 GM; Start 09/22/18 at 09:00 Senna/Docusate Sodium (Senokot-S) 1 tab BID PO Last administered on 09/22/18at 10:21; Admin Dose 1 TAB; Start 09/22/18 at 09:00 Bisacodyl (Dulcolax) 10 mg DAILY PRN PO CONSTIPATION; Start 09/22/18 at 10:30 Bisacodyl (Dulcolax Supp) 10 mg DAILY PRN [place] CONSTIPATION; Start 09/22/18 at 10:30 BRYAN LAGUNA MD Sep 22, 2018 10:55
[2018-09-22 20:20] VITALS: BP 94/55; PULSE 80; RESP 18
[2018-09-23] MEDS: VANCOMYCIN 500 MG (PMX) 100 ML IVPB SCH (01:44)
[2018-09-23 02:20] VITALS: BP 93/51; PULSE 64; RESP 18
[2018-09-23] MEDS: SOD CHLORIDE 0.9% 1,000 ML IV SCH ×2 (05:10→10:15)
[2018-09-23] MEDS: PIPER-TAZO 3.375 GM IV (PMX) 100 ML IVPB SCH ×2 (05:32→11:57)
[2018-09-23 07:59] VITALS: BP 112/59; PULSE 61; RESP 18
[2018-09-23] MEDS: POLYETHYLENE GLYCOL 17 GM PACKET PO SCH (09:10)
[2018-09-23] MEDS: VANCOMYCIN 1 GM (PMX) 250 ML IVPB SCH ×2 (09:10→15:34)
[2018-09-23] MEDS: SENNA/DOCUSATE NA (8.6MG/50MG) TAB PO SCH (09:11)
--- NOTE | 2018-09-23 11:21 | DS ---
Date/Time of Note Date/Time of Note DATE: 09/23/18 TIME: 11:09 Discharge Summary Admission/Discharge Info Admit Date/Time Sep 22, 2018 at 03:33 Discharge Date/Time Discharge Diagnosis Possible viral gastroenteritis. Resolved SIRS likely secondary to viral gastroenteritis. Resolved Patient Condition: Stable Hospital Course This a 33-year-old female with no significant past medical history admitted with 2-day duration of generalized abdominal pain/cramps/fevers/headache /nonbilious/nonbloody vomiting. She did not have any leukocytosis on arrival. Patient did have fevers. She was given broad-spectrum empiric antimicrobials. Her fever subsided. Her cultures came back negative. Patient did not have any further abdominal pain or vomiting. At this time, we feel like her symptoms are most likely contributed by a possible viral gastroenteritis which is now resolved although it is likely that she may have a few episodes of diarrhea which is expected followed by gastroenteritis. Patient is tolerating diet and activities well. She is very eager to be discharged home. There is no further indication to continue antimicrobials. Approximately 60-minute was spent in coordinating the discharge on this patient. Patient to follow-up with primary care physician after discharge. She was seen in collaboration with [facility] ([facility]) Active Scripts Acetaminophen* (Tylophen*) 500 Mg Capsule, 1 CAP PO Q6H PRN for PAIN AND OR ELEVATED TEMP, #20 CAP Prov:RICARDO NEVES. [employer] 05/01/17 Discontinued Scripts Ciprofloxacin Hcl* (Ciprofloxacin Hcl*) 500 Mg Tablet, 500 MG PO BID for 10 Days, #20 TAB Prov:RICARDO NEVES. [employer] 05/01/17 Ondansetron (Ondansetron Odt) 4 Mg Tab.rapdis, 4 MG PO Q6H PRN for NAUSEA AND/OR VOMITING, #10 TAB Prov:RICARDO NEVES [employer] 05/01/17 Naproxen* (Naprosyn*) 500 Mg Tablet, 500 MG PO BID, #20 TAB Prov:SUDHAKAR ONEAL PA-C 02/02/17 Metoclopramide* (Reglan*) 10 Mg Tablet, 10 MG PO Q6 PRN for NAUSEA AND/OR VOMITING, #20 TAB Prov:SUDHAKAR ONEAL PA-C 02/02/17 Meclizine Hcl* (Antivert*) 12.5 Mg Tab, 25 MG PO Q6H PRN for DIZZINESS, #30 TAB Prov:SUDHAKAR ONEAL PA-C 02/02/17 Primary Care Provider Care Physician No Primary Pending Labs Laboratory Tests Test 09/23/18 00:33 09/23/18 05:40 Vancomycin Level Trough 6.5 ug/ml (10.0-20.0) White Blood Count 3.7 10^3/ul (4.8-10.8) Red Blood Count 3.65 10^6/ul (4.20-5.40) Hemoglobin 10.9 g/dl (12.0-16.0) Hematocrit 32.5 % (37.0-47.0) Mean Corpuscular Volume 89.0 fl (82.0-101.0) Mean Corpuscular Hemoglobin 29.9 pg (29.0-33.0) Mean Corpuscular 33.5 g/dl (32.0-37.0) Hemoglobin Concent Red Cell Distribution Width 13.1 % (11.5-14.5) Platelet Count 168 10^3/UL (140-415) Mean Platelet Volume 10.9 fl (7.4-10.4) Immature Granulocytes % 0.300 % (0.001-0.429) Neutrophils % 22.7 % (39.0-77.0) Lymphocytes % 61.0 % (15.0-51.0) Monocytes % 13.6 % (0.0-11.0) Eosinophils % 1.9 % (0.0-7.0) Basophils % 0.5 % (0.0-2.0) Nucleated Red Blood Cells % 0.0 /100WBC (0.0-0.0) Immature Granulocytes # 0.010 10^3/ul (0.0-0.031) Neutrophils # 0.8 10^3/ul (1.6-7.5) Lymphocytes # 2.2 10^3/ul (0.8-2.9) Monocytes # 0.5 10^3/ul (0.3-0.9) Eosinophils # 0.1 10^3/ul (0.0-0.5) Basophils # 0.0 10^3/ul (0.0-0.1) Nucleated Red Blood Cells # 0.0 10^3/ul (0.0-0.0) Sodium Level 145 mmol/L (135-144) Potassium Level 3.8 mmol/L (3.5-5.1) Chloride Level 112 mmol/L (97-110) Carbon Dioxide Level 24 mmol/L (21-31) Anion Gap 9 (5-13) Blood Urea Nitrogen 6 mg/dl (7-20) Creatinine 0.53 mg/dl (0.44-1.00) Est Glomerular Filtrat > 60 mL/min (>60) Rate mL/min Glucose Level 83 mg/dl (70-220) Calcium Level 8.3 mg/dl (8.4-10.2) Total Bilirubin 0.4 mg/dl (0.2-1.3) Direct Bilirubin 0.00 mg/dl (0.00-0.20) Indirect Bilirubin 0.4 mg/dl (0-1.1) Aspartate Amino 25 IU/L (15-46) Transf (AST/SGOT) Alanine 34 IU/L (13-69) Aminotransferase (ALT/SGPT) Alkaline Phosphatase 68 IU/L (42-121) C-Reactive Protein 4.0 mg/dl (0.0-0.9) Total Protein 6.7 g/dl (6.1-8.1) Albumin 3.4 g/dl (3.3-4.9) Globulin 3.30 g/dl (1.3-3.2) Albumin/Globulin Ratio 1.03 GILBERT BENEDICT V. [employer] Sep 23, 2018 11:20
--- NOTE | 2018-09-23 11:22 | PDOCDIS ---
Discharge Instructions DIAGNOSIS Discharge Diagnosis Possible viral gastroenteritis. Resolved SIRS likely secondary to viral gastroenteritis. Resolved CONDITION [id number] Patient Condition: [id number] Stable HOME CARE INSTRUCTIONS: Mirian Diet Instructions: [id number] Regular FOLLOW UP/APPOINTMENTS Follow-up Plan Follow-up with primary care physician in 1 week. Drink plenty of water. GILBERT BENEDICT NP Sep 23, 2018 11:22
[2018-09-23] MEDS ORDERED: POLY17PO6 PO (11:24)
[2018-09-23 14:13] VITALS: BP 97/54; PULSE 57; RESP 18
== END 2018-09-23 17:57 | disposition home or self-care (01) | DRG 392 ==
LOC: E/R 01:08 → PP2 03:33 → SUATTDRO 08:30 → EDBEDREQSVC 08:49
PROVIDERS: ADMIT Family Medicine; ATTEND Family Medicine
DX: A08.4 Viral intestinal infection, unspecified (principal); K59.00 Constipation, unspecified
CPT/HCPCS: 36415; 71045; 74176; 74177; 80053; 80061; 80202; 80307; 81001; 81025; 83036; 83605; 83690; 84443; 84484; 85025; 85610; 85651; 85730; 86140; 87086; 93005; 96365; 96375; J0692; J2270; J2405; J2543; J3370; J7030; Q9967